=== PATIENT | male | born 1985 | race Caucasian/White ===

== ENCOUNTER 2016-05-29 13:53 | Inpatient (IN) | payer OTHER ==
[~2016-05-29] VITALS: Ht 167.6 cm; Wt 86.4 kg
[2016-05-29 13:55] VITALS: BP 136/78; PULSE 86; RESP 16; TEMP 98; O2SAT 99
[2016-05-29] MEDS ORDERED: KETOROLAC TROMETHAMINE 30 MG/ML (IVP) VIAL IV PUSH ONE (14:45)
[2016-05-29] MEDS ORDERED: MORPHINE SULFATE 4 MG/ML INJ IV PUSH ONE ×2 (14:45→16:30)
[2016-05-29] MEDS ORDERED: ONDANSETRON HCL 4 MG/2 ML VIAL IV PUSH ONE (14:45)
--- NOTE | 2016-05-29 15:24 | PD ---
HPI Chief Complaint: Injury Time Seen by Provider: 15:20 Travel History International Travel<30 days: No Contact w/Intl Traveler<30days: No Traveled to known affect area: No History of Present Illness HPI 31-year-old male that presents to the ED for evaluation of injury to his left leg. Per patient he was [place] the beach and he twisted wrong will putting his foot on the leg and he had severe sharp pain. Patient was not able to ambulate on the leg that he came here. He denies any prior injuries to the area. He denies any medical issues. No falls or trauma in the past to this area. He states that the pain is severe 8 out of 10 when he walks on it or moves it but if he doesn't move the pain is not too bad. 2 out of 10. He is not taking anything for this. Injury occurred less than an hour ago. No chest pain or shortness of breath. No other injuries. Per patient the pain is mainly from the tib-fib area. PFSH Past Medical History Respiratory: Yes (ASTHMA A CHILD) Social History Alcohol Use: Yes (social) Tobacco Use: No Allergies-Medications (Allergen,Severity, Reaction): Coded Allergies: Aspirin (Verified Allergy, Severe, RASH, 05/29/16) Reported Meds & Prescriptions Reported Meds & Active Scripts Active No Active Prescriptions or Reported Medications Review of Systems Except as stated in HPI: all other systems reviewed are Neg Physical Exam Narrative GENERAL: SKIN: Warm and dry. HEAD: Atraumatic. Normocephalic. EYES: Pupils equal and round. No scleral icterus. No injection or drainage. ENT: No nasal bleeding or discharge. Mucous membranes pink and moist. Tongue is midline. No uvula deviation. NECK: Trachea midline. No JVD. CARDIOVASCULAR: Regular rate and rhythm. RESPIRATORY: No accessory muscle use. Clear to auscultation. Breath sounds equal bilaterally. GASTROINTESTINAL: Abdomen soft, non-tender, nondistended. Hepatic and splenic margins not palpable. MUSCULOSKELETAL: Extremities without clubbing, cyanosis, or edema. No obvious deformities. Full rest of motion of the upper and lower extremities bilaterally with exception of the left foot which he has pain with flexion and extensiib of the foot itself on the tibia and fibula area. No malleolar pain noted. No plantar foot pain noted. Patient does have 2+ pulses bilaterally. Able to move all toes. Capillary refill intact. NEUROLOGICAL: Awake and alert. No obvious cranial nerve deficits. Motor grossly within normal limits. Five out of 5 muscle strength in the arms and legs. Normal speech. PSYCHIATRIC: Appropriate mood and affect; insight and judgment normal. Data Data Last Documented VS Vital Signs Date Time Temp Pulse Resp B/P Pulse Ox O2 Delivery O2 Flow Rate FiO2 05/29/16 15:40 17 05/29/16 13:55 98.0 86 136/78 99 Orders Tibia/Fibula (Ap/Lat) (05/29/16 14:34) Ice/Cold Pack (05/29/16 14:34) Ketorolac Inj (Toradol Inj) (05/29/16 14:45) Morphine Inj (Morphine Inj) (05/29/16 14:45) Ondansetron Inj (Zofran Inj) (05/29/16 14:45) Foot, Limited (2vws) (05/29/16 14:34) Admit Order (Ed Use Only) (05/29/16 16:19) MDM Medical Decision Making Medical Screen Exam Complete: Yes Emergency Medical Condition: Yes Medical Record Reviewed: Yes Interpretation(s) Last Impressions Tibia/Fibula X-Ray 05/29/16 1434 Signed Impressions: Service Date/Time: Sunday, May 29, 2016 14:55 - CONCLUSION: 1. Fractures of the proximal fibula and distal tibia as above. River Macias MD Foot X-Ray 05/29/164 Signed Impressions: Service Date/Time: Sunday, May 29, 2016 14:54 - CONCLUSION: 1. Negative left foot fracture. Spiral fracture distal tibia. River Macias MD Differential Diagnosis Fracture versus contusion versus sprain Narrative Course 31-year-old male that presents to the ED for evaluation of left foot injury. Patient was properly examined and was found to have signs and symptoms concerning for fractures. X-rays were done. X-rays showed what appears to be a tib-fib fracture with a spiral fracture to the distal tibia and what appears to be also spiral fracture of the proximal fibula. Case was discussed in my attending who agrees with need for or to consultation. Dr. Hurtado recommends admission to his service for surgery today. Keep him nothing by mouth. Patient was told this and agrees with plan. Patient was put in a splint. Given pain medication. Labs were ordered. Diagnosis Primary Impression: Tibia/fibula fracture, shaft Qualified Code: S82.202A - Tibia/fibula fracture, shaft, left, closed, initial encounter Admitting Information Admitting Physician Requests: Observation Scripts No Active Prescriptions or Reported Meds Allan Morrison May 29, 2016 15:23
--- NOTE | 2016-05-29 15:31 | RADRPT ---
EXAM DATE/TIME: 05/29/2016 14:54 [facility] COMPARISON: No previous studies available for comparison. INDICATIONS : Left lower leg pain post fall MEDICAL HISTORY : None. SURGICAL HISTORY : None. ENCOUNTER: Initial ACUITY: 1 day PAIN SCORE: 10/10 LOCATION: Left Foot FINDINGS: There is a spiral fracture of the distal tibia. No fracture identified within the left foot. Skin burt cifications noted around the toes. CONCLUSION: 1. Negative left foot fracture. Spiral fracture distal tibia. River Macias MD on May 29, 2016 at 15:28 Board Certified Radiologist. This report was verified electronically.
--- NOTE | 2016-05-29 15:34 | RADRPT ---
EXAM DATE/TIME: 05/29/2016 14:55 [facility] COMPARISON: No previous studies available for comparison. INDICATIONS : Left lower leg pain post fall MEDICAL HISTORY : None. SURGICAL HISTORY : None. ENCOUNTER: Initial ACUITY: 1 day PAIN SCORE: 10/10 LOCATION: Left Tibia FINDINGS: There is a mildly displaced fracture of the proximal fibular shaft spiral fracture of the distal tibi al shaft. No dislocation at the ankle or knee CONCLUSION: 1. Fractures of the proximal fibula and distal tibia as above. River Macias MD on May 29, 2016 at 15:30 Board Certified Radiologist. This report was verified electronically.
[2016-05-29 16:40] VITALS: BP 135/68; PULSE 106; RESP 16; TEMP 97.8; O2SAT 99
[2016-05-29 16:47] LABS: BASOPHIL % 0.2 % (0.0-2.0); HEMATOCRIT 44.4 % (39.0-51.0); HEMO FLAGS DIFF FINAL; LYMPH % 5.3 % (9.0-44.0); LYMPHOCYTE # 0.8 TH/MM3 (1.0-4.8); MEAN CELL VOLUME 92.8 FL (80.0-100.0); MEAN CORPUSCULAR HEMOGLOBIN 31.2 PG (27.0-34.0); MEAN CORPUSCULAR HGB CONC 33.6 % (32.0-36.0); MONO % 4.8 % (0.0-8.0); NEUT % 89.7 % (16.0-70.0); PLATELET COUNT 252 TH/MM3 (150-450); RED BLOOD COUNT 4.78 MIL/MM3 (4.50-5.90); RED CELL DISTRIBUTION WIDTH 12.5 % (11.6-17.2); WHITE BLOOD COUNT 15.6 TH/MM3 (4.0-11.0)
[2016-05-29 17:10] LABS: BICARBONATE 27.4 MEQ/L (21.0-32.0); POTASSIUM 3.8 MEQ/L (3.5-5.1)
--- NOTE | 2016-05-29 17:57 | HHI.HP ---
[facility] Service Orthopedic Surgeons Primary Care Physician Non-Staff Admission Diagnosis left distal tibia spiral fracture, left proximal fibular fracture Diagnoses: (1) Tibia/fibula fracture, shaft Chief Complaint: left leg pain Travel History International Travel<30 Days: No Contact w/Intl Traveler <30 Da: No Traveled to Known Affected Are: No History of Present Illness This 31-year-old male injured his left lower extremity playing soccer on the beach. He had a twisting type stress. He had immediate pain in the left lower extremity with inability to ambulate. He presented to [facility]. X-rays revealed a spiral fracture of the distal third of the left tibia with an associated proximal fibula fracture. The patient was placed into a splint. He is admitted for management of same. He denies other extremity injury at the time of his fall. He denies any pre-existing left lower extremity problems. Review of Systems Constitutional: DENIES: Diaphoretic episodes, Fatigue, Fever, Weight loss Endocrine: DENIES: Heat/cold intolerance Eyes: DENIES: Blurred vision, Eye pain Ears, nose, mouth, throat: DENIES: Hearing loss, Oral lesions, Throat pain Respiratory: DENIES: Apneas, Cough Cardiovascular: DENIES: Chest pain Gastrointestinal: DENIES: Abdominal pain Genitourinary: DENIES: Sexual dysfunction Musculoskeletal: DENIES: Joint pain Integumentary: DENIES: Abnormal pigmentation, Nail changes Hematologic/lymphatic: DENIES: Bruising Immunologic/allergic: DENIES: Eczema Neurologic: DENIES: Abnormal gait, Headache, Localized weakness Psychiatric: DENIES: Anxiety, Confusion, Mood changes, Depression Past Family Social History Past Medical History The patient denies active medical illness Past Surgical History He has had no previous surgery Allergies: Coded Allergies: Aspirin (Verified Allergy, Severe, RASH, 05/29/16) Active Ordered Medications Reported Meds & Active Scripts Active No Active Prescriptions or Reported Medications Family History Noncontributory Social History The patient is employed as a warehouse associate driver. He denies tobacco use and uses alcohol socially. He denies illicit drug use. He is not . Physical Exam Vital Signs Vital Signs Date Time Temp Pulse Resp B/P Pulse Ox O2 Delivery O2 Flow Rate FiO2 05/29/16 16:40 97.8 106 16 135/68 99 Room Air 05/29/16 16:34 17 05/29/16 15:40 17 05/29/16 14:45 17 05/29/16 13:55 98.0 86 16 136/78 99 Physical Exam GENERAL: Well-nourished, well-developed patient. SKIN: Warm and dry. HEAD: Normocephalic. EYES: No scleral icterus. No injection or drainage. NECK: Supple, trachea midline. No JVD or lymphadenopathy. CARDIOVASCULAR: Regular rate and rhythm without murmurs, gallops, or rubs. RESPIRATORY: Breath sounds equal bilaterally. No accessory muscle use. GASTROINTESTINAL: Abdomen soft, non-tender, nondistended. EXTREMITIES: The left lower extremity is in a splint and knee immobilizer. He moves his toes freely and has good capillary refill and sensation. There are no other localizing signs of extremity injury, cyanosis, clubbing or edema. NEUROLOGICAL: Awake, alert, and oriented x 3. Non-focal. Laboratory Laboratory Tests Test 05/29/16 16:30 White Blood Count 15.6 Red Blood Count 4.78 Hemoglobin 14.9 Hematocrit 44.4 Mean Corpuscular Volume 92.8 Mean Corpuscular Hemoglobin 31.2 Mean Corpuscular Hemoglobin 33.6 Concent Red Cell Distribution Width 12.5 Platelet Count 252 Mean Platelet Volume 7.2 Neutrophils (%) (Auto) 89.7 Lymphocytes (%) (Auto) 5.3 Monocytes (%) (Auto) 4.8 Eosinophils (%) (Auto) 0.0 Basophils (%) (Auto) 0.2 Neutrophils # (Auto) 14.0 Lymphocytes # (Auto) 0.8 Monocytes # (Auto) 0.8 Eosinophils # (Auto) 0.0 Basophils # (Auto) 0.0 CBC Comment DIFF FINAL Differential Comment Sodium Level 139 Potassium Level 3.8 Chloride Level 104 Carbon Dioxide Level 27.4 Anion Gap 8 Blood Urea Nitrogen 12 Creatinine 1.06 Estimat Glomerular Filtration 81 Rate Random Glucose 111 Calcium Level 8.4 Result Diagram: 05/29/16 1630 05/29/16 1630 Imaging Last 24 hours Impressions Tibia/Fibula X-Ray 05/29/16 1434 Signed Impressions: Service Date/Time: Sunday, May 29, 2016 14:55 - CONCLUSION: 1. Fractures of the proximal fibula and distal tibia as above. River Macias MD Foot X-Ray 05/29/16 0164 Signed Impressions: Service Date/Time: Sunday, May 29, 2016 14:54 - CONCLUSION: 1. Negative left foot fracture. Spiral fracture distal tibia. River Macias MD Assessment & Plan Problem List: (1) Tibia/fibula fracture, shaft Assessment and Plan The findings and alternatives of the treatment were discussed at length. This included both operative and nonoperative. In addition the risks and benefits of each were discussed. Recommendations are given to consider surgical management to allow earlier mobilization and better potential for anatomic alignment. The nature of the procedure, the risks, the expected benefits, as well as the postoperative expectations were discussed with the patient and his girlfriend in detail. In addition, the alternatives to treatment and risks of same were discussed. At the time of this dictation patient was somewhat undecided. He will stay nothing by mouth the present time and if he decides to proceed with surgical management most likely will be completed this evening. Enmanuel Hurtado MD May 29, 2016 17:57
[2016-05-29 19:31] VITALS: BP 139/87; PULSE 100; RESP 21; TEMP 98.4; O2SAT 99
[2016-05-29] MEDS ORDERED: POVIDONE IODINE 5% (ANTISEPSIS KIT) 4 APPLICATIONS EACH NARE PRN (20:00)
[2016-05-29] MEDS ORDERED: METOPROLOL TARTRATE 25 MG TAB PO PRN (20:00)
[2016-05-29] MEDS ORDERED: INSULIN HUMAN REGULAR 1,000 UNITS/10 ML VIAL SQ PRN (20:00)
[2016-05-29] MEDS ORDERED: SODIUM CHLORID 0.9% 500 ML IV PRN (20:00)
[2016-05-29] MEDS ORDERED: CHLORHEXIDINE GLUCONATE 2 % 1 PACK (2 CLOTHS) TOPICAL PRN (20:00)
[2016-05-29] MEDS ORDERED: LACTATED RINGER'S 1000 ML IV PRN (20:00)
[2016-05-29] MEDS ORDERED: ONDANSETRON ODT 4 MG TAB PO PRN (21:00)
[2016-05-29] MEDS ORDERED: diphenhydrAMINE HCL 25 MG CAP PO PRN (21:00)
[2016-05-29] MEDS ORDERED: oxyCODONE/ACETAMINOPHEN 5 MG/325 MG TAB PO PRN (21:00)
[2016-05-29] MEDS ORDERED: TEMAZEPAM 15 MG CAP PO PRN (21:00)
[2016-05-29 21:27] LABS: APTT (PATIENT) 23.3 SEC (24.3-30.1)
[2016-05-29] MEDS: MORPHINE SULFATE 4 MG/ML INJ IV PUSH PRN (22:26)
[2016-05-30] VITALS (8 sets, daily range): BP systolic 126–142; BP diastolic 69–85; PULSE 76–98; RESP 16–18; TEMP 97.5–98.2; O2SAT 94–99
[2016-05-30] MEDS: MORPHINE SULFATE 4 MG/ML INJ IV PUSH PRN (03:01)
[2016-05-30] MEDS: oxyCODONE/ACETAMINOPHEN 5 MG/325 MG TAB PO PRN ×4 (04:46→20:43)
[2016-05-30] MEDS ORDERED: ceFAZolin INJ 1,000 MG VIAL IV ONE (12:35)
[2016-05-30] MEDS ORDERED: GENTAMICIN SULFATE 80 MG/2 ML VIAL ONE (13:00)
[2016-05-30] MEDS ORDERED: ACETAMINOPHEN 1000 MG/100 ML VIAL IV ONE (13:33)
--- NOTE | 2016-05-30 13:37 | EKG ---
Date Performed: 05/29/2016 Time Performed: 16:37:16 PTAGE: 31 years EKG: SINUS TACHYCARDIA ABNORMAL RHYTHM ECG NO PREVIOUS TRACING DOCTOR: Enmanuel Medina Interpretating Date/Time 05/30/2016 13:36:21
--- NOTE | 2016-05-30 14:01 | RADRPT ---
EXAM DATE/TIME: 05/30/2016 13:30 [facility] COMPARISON: No previous studies available for comparison. INDICATIONS : Open reduction internal fixation of left tibia. MEDICAL HISTORY : None. SURGICAL HISTORY : None. ENCOUNTER: Subsequent ACUITY: 1 day PAIN SCORE: Non-responsive. LOCATION: Left tibia. FINDINGS: Side plate and multiple screws traverse the tibia with excellent anatomical alignment of the fracture fragments. CONCLUSION: Intact postsurgical changes for technique. Daily Andrews MD on May 30, 2016 at 13:59 Board Certified Radiologist. This report was verified electronically.
--- NOTE | 2016-05-30 14:03 | PD.OP ---
cc: Enmanuel Hurtado MD Operative Report Date of Surgery: May 30, 2016 Preoperative Diagnosis: (1) Fracture of shaft of left tibia and fibula Postoperative Diagnosis: (1) Fracture of shaft of left tibia and fibula Procedure: Open reduction internal fixation left tibia fracture Implants used: Synthes medial tibial plate Anesthesia: Gen. Surgeon: Enmanuel Hurtado Life Skills Educator(s): Jennifer Luis PA-C ([place]ley) The surgical procedure was assisted by my physician's bilingual legal assistant. Her presence was necessary throughout the case for manipulation and positioning of the surgical extremity. My PA was assisting me throughout the duration of this procedure. The skill set of the physician bilingual legal assistant was medically necessary to complete this procedure. During the surgical case the surgical elastic knitter hand frame was working at the back table and the physician bilingual legal assistant was directly assisting me. Operation and Findings: Indications: This 31-year-old male injured his left lower extremity [place]. The patient had a twisting stress and had immediate pain and deformity. He presented to [facility]. X-rays revealed a spiral fracture of the distal third of the tibia with an associated fibula fracture. Given the alternatives of the treatment both operative and nonoperative he presents for internal fixation. Procedure and findings: The patient was taken to the operative suite and after undergoing an adequate level of general anesthesia was kept supine on the operating table. Preoperative antibiotics consisted of Ancef 2 g IV. The left lower extremity was then prepped and draped in usual sterile fashion with alcohol and Hibiclens. Preoperative reduction was checked in both the AP and lateral planes with the C-arm. It was manipulated into anatomic alignment. An approximate 4 cm incision was made over the anteromedial aspect of the ankle. This was carried down through skin and subcutaneous tense tissue with a knife. The saphenous vein was identified and protected. Incision was carried sharply to the periosteum. Subperiosteal dissection was carried out. A Synthes medial tibial plate was then tunneled along the cortex of the bone across the fracture site and seated. The position was checked in both the AP and lateral planes with the C-arm. Utilizing percutaneous incisions a large bone reduction clamp was applied and the fracture held reduced. Proximal screws were placed percutaneously. Screws at the fracture were accomplished giving compression fixation. The reduction clamp was removed and the reduction held. Additional screws were placed proximally and distally. Cortical screws were used proximally and locking screws distally. The position of the fracture reduction and placement of the internal fixation were checked in both the AP and lateral planes with the C-arm. The wounds were thoroughly irrigated. There were closed in layers utilizing 2-0 Vicryl on the subcutaneous tense tissue and 3-0 nylon on the skin and percutaneous sites. Sterile dressings were applied, the patient was awakened, transferred to the hospital bed and taken to the recovery room in stable condition. Estimated blood loss: Minimal Complications: None Enmanuel Hurtado MD May 30, 2016 14:03
[2016-05-30] MEDS ORDERED: POVIDONE IODINE 10% SOLN 118 ML BOTTLE TOPICAL PRN (14:15)
[2016-05-30] MEDS ORDERED: TEMAZEPAM 15 MG CAP PO PRN (14:15)
[2016-05-30] MEDS ORDERED: MORPHINE SULFATE 30 MG/30 ML PCA IV SCH (14:15)
[2016-05-30] MEDS ORDERED: Post-op Orders (for Pharmacy) MISC XX ONE (14:15)
[2016-05-30] MEDS ORDERED: ALUMINUM/MAGNESIUM/SIMETH 30 ML CUP PO PRN (14:15)
[2016-05-30] MEDS ORDERED: oxyCODONE/ACETAMINOPHEN 5 MG/325 MG TAB PO PRN (14:15)
[2016-05-30] MEDS ORDERED: SODIUM CHLORIDE 0.9% FLUSH 10 ML FLUSH IV FLUSH PRN (14:15)
[2016-05-30] MEDS ORDERED: ACETAMINOPHEN 325 MG TAB PO PRN (14:15)
[2016-05-30] MEDS ORDERED: NALOXONE HCL 0.4 MG/ML AMP IV PRN (14:15)
[2016-05-30] MEDS ORDERED: ONDANSETRON HCL 4 MG/2 ML VIAL IVP PRN (14:15)
[2016-05-30] MEDS ORDERED: MORPHINE SULFATE 8 MG/ML INJ IV PUSH PRN (14:15)
[2016-05-30] MEDS ORDERED: MISCELLANEOUS PHARMACY INFORMATION XX ONE (14:15)
[2016-05-30] MEDS ORDERED: MISCELLANEOUS NURSING INFORMATION XX PRN (14:15)
[2016-05-30] MEDS ORDERED: MAGNESIUM HYDROXIDE SUSP 30 ML CUP PO PRN (14:15)
[2016-05-30] MEDS ORDERED: fentaNYL CITRATE 250 MCG/5 ML AMP ONE (14:30)
[2016-05-30] MEDS ORDERED: LACTATED RINGER'S 1000 ML INJ 1,000 ML IV ONE (14:35)
[2016-05-30] MEDS ORDERED: PROPOFOL 200 MG/20 ML AMP IV ONE (14:35)
[2016-05-30] MEDS ORDERED: ONDANSETRON HCL 4 MG/2 ML VIAL IV PUSH ONE (14:35)
[2016-05-30] MEDS ORDERED: *morphine SULFATE 8 MG/ML PERIprocedure ONLY ONE ×2 (14:44→14:54)
[2016-05-30] MEDS ORDERED: DO NOT ADM ANY ANTICOAGULANT DRUGS PRN (14:45)
[2016-05-30] MEDS: LACTATED RINGER'S 1000 ML INJ 1,000 ML IV SCH (14:50)
[2016-05-30] MEDS ORDERED: *LABETALOL HCL 100 MG/20 ML VIAL PERIprocedural Use ONLY ONE (15:21)
[2016-05-30] MEDS: ceFAZolin 2 GM PREMIX 50 ML IV SCH ×2 (18:23→23:10)
[2016-05-30] MEDS: SODIUM CHLORIDE 0.9% FLUSH 10 ML FLUSH IV FLUSH SCH (20:10)
[2016-05-30] MEDS: PCA - TOTAL MG MORPHINE DELIVERED PER SHIFT SCH (20:47)
[2016-05-31] VITALS: BP 116/57; PULSE 105; RESP 20; TEMP 97.5; O2SAT 96
[2016-05-31] MEDS: LACTATED RINGER'S 1000 ML INJ 1,000 ML IV SCH (00:16)
[2016-05-31] MEDS: oxyCODONE/ACETAMINOPHEN 5 MG/325 MG TAB PO PRN ×3 (01:13→11:18)
[2016-05-31 04:00] VITALS: BP 110/57; PULSE 100; RESP 20; TEMP 97.8; O2SAT 97
[2016-05-31] MEDS: PCA - TOTAL MG MORPHINE DELIVERED PER SHIFT SCH (06:00)
[2016-05-31] MEDS: ceFAZolin 2 GM PREMIX 50 ML IV SCH (07:35)
--- NOTE | 2016-05-31 07:38 | PD.ORT.PN ---
Subjective Post Op Day #: 1 Subjective Remarks Patient laying comfortably in bed, awake and alert, with at bedside. He admits left ankle pain is well controlled. He feels ready to be discharged today. No other complaints. Objective Vitals Vital Signs Date Time Temp Pulse Resp B/P Pulse Ox O2 Delivery O2 Flow Rate FiO2 05/31/16 04:00 97.8 100 20 110/57 97 05/31/16 02:13 18 05/31/16 00:00 97.5 105 20 116/57 96 05/30/16 22:40 98 21 05/30/16 21:00 97.6 98 16 126/74 97 05/30/16 20:47 18 05/30/16 16:50 98 21 05/30/16 16:00 97.6 88 18 137/76 94 05/30/16 15:30 90 16 126/86 97 Nasal Cannula 2 05/30/16 15:15 104 16 119/94 97 Nasal Cannula 2 05/30/16 15:00 96 16 139/91 97 Nasal Cannula 2 05/30/16 14:45 104 16 135/85 96 Nasal Cannula 2 05/30/16 14:30 98 16 143/85 97 Nasal Cannula 2 05/30/16 14:20 98.1 90 16 130/82 97 Nasal Cannula 2 05/30/16 11:22 97.8 88 18 128/84 98 05/30/16 08:00 97.5 76 18 142/83 95 I/O 05/30/16 05/30/16 05/30/16 05/31/16 05/31/16 05/31/16 07:00 15:00 23:00 07:00 15:00 23:00 Intake Total 0 ml 100 ml 889 ml Output Total 400 ml 600 ml Balance 0 ml 100 ml -400 ml 289 ml Intake Oral 0 ml IV Total 100 ml 889 ml Output Urine Total 400 ml 600 ml # Voids 1 4 # Bowel Movements 0 Result Diagram: 05/29/16 1630 05/29/16 1630 Imaging Last Impressions Tibia/Fibula X-Ray 05/30/16 0000 Signed Impressions: Service Date/Time: Monday, May 30, 2016 13:30 - CONCLUSION: Intact postsurgical changes for technique. KKang Andrews MD Foot X-Ray 05/29/16 1434 Signed Impressions: Service Date/Time: Sunday, May 29, 2016 14:54 - CONCLUSION: 1. Negative left foot fracture. Spiral fracture distal tibia. River Macias MD Procedures Open reduction internal fixation left tibia fracture (05/30/16) Objective Remarks LLE: Splint, Dressing dry and intact. Appropriate range of motion expected post operatively. Freely able to move distal digits. Good cap refill. 2+ pedal pulses. Neurovascular intact. Assessment & Plan Ortho Post Op Day #: 1 Problem List: (1) Tibia/fibula fracture, shaft (2) Fracture of shaft of left tibia and fibula Assessment and Plan Open reduction internal fixation left tibia fracture Ortho status stable POD #1 Dressing changes every other day Fracture boot. Toe touch WB Xarelto DVT prophylaxis Discharge today, follow up with Orthopedics 1-2 weeks. Jennifer Luis May 31, 2016 07:38
[2016-05-31 07:42] LABS: HEMATOCRIT 38.9 % (39.0-51.0); REVIEW FLAG FINAL
[2016-05-31] MEDS ORDERED: OXYC1TAB63 PO (07:42)
[2016-05-31] MEDS ORDERED: XARE10TA PO (07:42)
[2016-05-31] MEDS ORDERED: WALKER/ADULT/FO1 MIS (07:42)
[2016-05-31 08:00] VITALS: BP 133/71; PULSE 89; RESP 18; TEMP 98.6; O2SAT 95
[2016-05-31 08:32] VITALS: O2SAT 99
[2016-05-31] MEDS: SODIUM CHLORIDE 0.9% FLUSH 10 ML FLUSH IV FLUSH SCH (09:00)
[2016-05-31 12:35] VITALS: RESP 18
[2016-05-31] MEDS ORDERED: RIVAROXABAN 10 MG TAB PO SCH (13:00)
== END 2016-05-31 12:53 | disposition home or self-care (01) | DRG 494 ==
LOC: NEPD 13:53 → NEDA 16:23 → OBSVTOIN 16:23 → N06A 19:23
PROVIDERS: ADMIT Orthopaedic Surgery Sports Medicine; ATTEND Orthopaedic Surgery Sports Medicine
PROC: 0QSH04Z Reposition Left Tibia with Internal Fixation Device, Open Approach (ICD-10-PCS; principal; 2016-05-30 12:13)
DX: S82.242A Displaced spiral fracture of shaft of left tibia, initial encounter for closed fracture (principal); S82.442A Displaced spiral fracture of shaft of left fibula, initial encounter for closed fracture; X50.1XXA Overexertion from prolonged static or awkward postures, initial encounter; Y93.66 Activity, soccer; Y92.832 Beach as the place of occurrence of the external cause
CPT/HCPCS: 73590; 73620; 76000; 80048; 82948; 85014; 85018; 85025; 85610; 85730; 93005; 94150; 96374; 96375; C1713; J0131; J0690; J1580; J1885; J2270; J2405; J3010; J7120; L1830; L2114